=== PATIENT | male | born 1975 | race Caucasian/White ===

== ENCOUNTER 2017-03-07 09:00 | Emergency (ER) | payer OTHER ==
[~2017-03-07] VITALS: Ht 172.7 cm; Wt 106.8 kg
[~2017-03-07 09:00] MED LIST: UNRESPONSIVE
[2017-03-07 09:04] VITALS: BP 175/93; PULSE 67; TEMP 97.9
[2017-03-07] MEDS ORDERED: TESSALON P100 MG/CAP PO (10:23)
== END 2017-03-07 10:56 | disposition home or self-care (01) ==
LOC: COL.ER 09:00
DX: J06.9 Acute upper respiratory infection, unspecified (principal)

== ENCOUNTER 2017-06-24 05:36 | Emergency (ER) | payer OTHER ==
[~2017-06-24] VITALS: Ht 172.7 cm; Wt 108.2 kg
[~2017-06-24 05:36] MED LIST changes: +TESSALON P100 MG/CAP PO
[2017-06-24 05:38] VITALS: TEMP 98.5
[2017-06-24 06:39] LABS: BASO # 0.1 (0.0-0.2); BASO % 0.9 % (0.0-2.0); EOS # 0.4 (0.0-0.7); EOS % 5.4 % (0-4.0); GRAN # 3.6 (1.4-6.5); GRAN % 52.6 % (42.2-75.2); HEMATOCRIT 42.6 % (42.0-52.0); HEMOGLOBIN 14.2 g/dl (13.5-18.0); LYMPH # 2.2 (1.2-3.4); LYMPH % 32.1 % (20.0-51.0); MEAN CELL VOLUME 88 fl (80.0-100.0); MEAN CORPUSCULAR HEMOGLOBIN 30 pg (27.0-31.0); MEAN CORPUSCULAR HGB CONC 33 g/dl (33.0-37.0); MEAN PLATELET VOLUME 10.1 fl (7.4-10.4); MONO # 0.6 (0.1-0.6); MONO % 8.7 % (1.7-9.3); PLATELET COUNT 221 K/mm3 (130-400); RED BLOOD COUNT 4.82 M/mm3 (4.20-5.60); WHITE BLOOD COUNT 6.8 K/mm3 (4.8-10.8)
[2017-06-24 06:50] LABS: ADJUSTED CALCIUM 8.7 mg/dL (8.4-10.2); ALANINE AMINOTRANSFERASE 37 U/L (21-72); ALBUMIN 4.1 gm/dL (3.5-5.0); ALKALINE PHOSPHATASE 53 U/L (50-136); ANION GAP 9 mmol/L (7-16); BILIRUBIN,TOTAL 0.6 mg/dL (0.0-1.0); BLOOD UREA NITROGEN 19 mg/dL (9-20); CALCIUM 8.8 mg/dL (8.4-10.2); CARBON DIOXIDE 28 mmol/L (22-30); CHLORIDE 103 mmol/L (98-107); CREATINE KINASE 256 U/L (55-170); CREATININE, serum 1.04 mg/dL (0.66-1.25); GLUCOSE 127 mg/dL (74-106); POTASSIUM 3.7 mmol/L (3.4-5.0); SODIUM 140 mmol/L (137-145); TOTAL PROTEIN 6.9 gm/dL (6.4-8.2)
[2017-06-24 07:07] LABS: TROPONIN-I < 0.012 ng/mL (0.000-0.034)
[2017-06-24] MEDS ORDERED: ULTRAM 50MG TAB50 MG PO (07:27)
[2017-06-24] MEDS ORDERED: MEDROL 4MG DOSPA4 MG PO (07:27)
[2017-06-24 07:45] VITALS: BP 150/79; PULSE 70
== END 2017-06-24 07:47 | disposition home or self-care (01) ==
LOC: COL.ER 05:36
PROVIDERS: Emergency Medicine
DX: R20.2 Paresthesia of skin (principal); I10 Essential (primary) hypertension
CPT/HCPCS: J1885; J2060

== ENCOUNTER 2017-08-27 23:53 | Emergency (ER) | payer OTHER ==
[~2017-08-27] VITALS: Ht 172.7 cm; Wt 110.5 kg
[~2017-08-27 23:53] MED LIST changes: +MEDROL 4MG DOSPA4 MG PO; +ULTRAM 50MG TAB50 MG PO
[2017-08-27 23:57] VITALS: BP 167/88; TEMP 98.1
[2017-08-28] MEDS ORDERED: DOXYCYCLINE 10100 MG PO (01:00)
[2017-08-28 01:13] VITALS: PULSE 74
== END 2017-08-28 01:14 | disposition home or self-care (01) ==
LOC: COL.ER 23:53
DX: J18.1 Lobar pneumonia, unspecified organism (principal); R04.2 Hemoptysis

== ENCOUNTER → 2018-10-31 | Outpatient (CLI) | payer OTHER ==
[~2018-10-31] MED LIST changes: +DOXYCYCLINE 10100 MG PO
[2018-10-31 16:56] LABS: CALCIUM 9.2 mg/dL (8.4-10.2); CREATININE, serum 1.11 (0.66-1.25); POTASSIUM 3.8 mmol/L (3.4-5.0)
== END ==
LOC: ZCOL.LAB 15:57
PROVIDERS: Family Medicine
DX: I10 Essential (primary) hypertension (principal)

== ENCOUNTER → 2018-11-14 | Outpatient (CLI) | payer OTHER ==
[2018-11-14 17:03] LABS: CREATININE, serum 0.98 (0.66-1.25); POTASSIUM 4.1 mmol/L (3.4-5.0)
== END ==
LOC: ZCOL.LAB 16:14
PROVIDERS: Family Medicine
DX: I10 Essential (primary) hypertension (principal)

== ENCOUNTER 2019-04-13 05:44 | Emergency (ER) | payer SELFPAY ==
[~2019-04-13] VITALS: Wt 118.2 kg
[2019-04-13 05:50] VITALS: TEMP 98.3
[2019-04-13 06:26] LABS: BASO % 0.5 % (0.0-2.0); EOS # 0.4 (0.0-0.7); EOS % 4.5 % (0-4.0); GRAN # 4.3 (1.4-6.5); GRAN % 51.1 % (42.2-75.2); HEMATOCRIT 44.6 % (42.0-52.0); HEMOGLOBIN 15.2 g/dl (13.5-18.0); LYMPH # 2.9 (1.2-3.4); MEAN CELL VOLUME 86 fl (80.0-100.0); MEAN CORPUSCULAR HEMOGLOBIN 29 pg (27.0-31.0); MEAN CORPUSCULAR HGB CONC 34 g/dl (33.0-37.0); MEAN PLATELET VOLUME 10.2 fl (7.4-10.4); MONO # 0.7 (0.1-0.6); MONO % 8.5 % (1.7-9.3); PLATELET COUNT 233 K/mm3 (130-400); RED BLOOD COUNT 5.19 M/mm3 (4.20-5.60); REDCELL DISTRIBUTION WIDTH-CV 13.1 % (11.5-14.5)
[2019-04-13 06:41] LABS: ALANINE AMINOTRANSFERASE 31 U/L (21-72); ALBUMIN 4.3 gm/dL (3.5-5.0); ALKALINE PHOSPHATASE 58 U/L (50-136); ANION GAP 10 mmol/L (7-16); AST,SGOT 38 U/L (15-37); BILIRUBIN,TOTAL 0.6 mg/dL (0.0-1.0); BLOOD UREA NITROGEN 16 mg/dL (9-20); CARBON DIOXIDE 31 mmol/L (22-30); CHLORIDE 101 mmol/L (98-107); CREATININE, serum 0.94 (0.66-1.25); GLUCOSE 160 mg/dL (74-106); POTASSIUM 3.7 mmol/L (3.4-5.0); SODIUM 141 mmol/L (137-145); TOTAL PROTEIN 7.6 gm/dL (6.4-8.2)
[2019-04-13 07:02] LABS: TROPONIN-I < 0.012 ng/mL (0.000-0.035)
[2019-04-13] MEDS ORDERED: FLEXERIL 1010 MG/TAB PO (08:19)
[2019-04-13 09:18] VITALS: BP 144/93; PULSE 72
== END 2019-04-13 09:22 | disposition home or self-care (01) ==
LOC: COL.ER 05:44
PROVIDERS: Emergency Medicine
DX: I10 Essential (primary) hypertension (principal)

== ENCOUNTER 2021-05-25 04:42 | Emergency (ER) | payer SELFPAY ==
[~2021-05-25 04:42] MED LIST changes: +FLEXERIL 1010 MG/TAB PO
[2021-05-25 04:52] VITALS: TEMP 98.2
[2021-05-25 05:47] VITALS: BP 183/97; PULSE 64
== END 2021-05-25 05:47 | disposition home or self-care (01) ==
LOC: COL.ER 04:42
DX: U07.1 COVID-19 (principal); J12.82 Pneumonia due to coronavirus disease 2019; R04.2 Hemoptysis